=== PATIENT | female | born 1955 | race Two or more races ===

== ENCOUNTER 2020-03-14 07:30 | Inpatient (IN) | payer OTHER ==
[~2020-03-14] VITALS: Ht 160 cm; Wt 78.9 kg
[2020-03-14] MEDS ORDERED: TIROSINT75 MCG PO (09:59)
[2020-03-14] MEDS ORDERED: LOSART PO (10:00)
[2020-03-14] MEDS ORDERED: TOPROL XL100 MG PO (10:01)
[2020-03-14] MEDS ORDERED: ATORVASTATIN CA10 MG PO (10:01)
[2020-03-15] MEDS ORDERED: COZAAR25 MG PO (09:25)
[2020-03-15] MEDS ORDERED: HUMULIN 70100 UNIT/2 SUBCUTANEO (09:35)
[2020-03-15] MEDS ORDERED: CATAFLAN (09:38)
[2020-03-15] MEDS ORDERED: CATAFLAM PO (09:39)
[2020-03-20] MEDS ORDERED: HYOSCYAMINE0.125 M1 (07:59)
[2020-03-20] MEDS ORDERED: LOSARTAN POTAS100 MG PO (07:59)
[2020-03-24] MEDS ORDERED: HYOSCYAMINE0.125 M1 SL (10:24)
[2020-03-24] MEDS ORDERED: PERCOCET 5-3251 EACH PO (10:25)
== END 2020-03-24 11:25 | disposition home or self-care (01) | DRG 331 ==
LOC: O/R 03-20 06:30 → SURH 03-20 06:30
PROVIDERS: ADMIT Surgery
PROC: 0FT44ZZ Resection of Gallbladder, Percutaneous Endoscopic Approach (ICD-10-PCS; 2020-03-20)
PROC: 0DJD8ZZ Inspection of Lower Intestinal Tract, Via Natural or Artificial Opening Endoscopic (ICD-10-PCS; 2020-03-20)
PROC: 0DTN4ZZ Resection of Sigmoid Colon, Percutaneous Endoscopic Approach (ICD-10-PCS; principal; 2020-03-20 07:00)
PROC: 4A033R1 Measurement of Arterial Saturation, Peripheral, Percutaneous Approach (ICD-10-PCS; 2020-03-21)
PROC: 4A12X4Z Monitoring of Cardiac Electrical Activity, External Approach (ICD-10-PCS; 2020-03-21)
PROC: 07BC4ZX Excision of Pelvis Lymphatic, Percutaneous Endoscopic Approach, Diagnostic (ICD-10-PCS; 2020-03-21)
DX: K57.20 Diverticulitis of large intestine with perforation and abscess without bleeding (principal); K81.1 Chronic cholecystitis; I11.9 Hypertensive heart disease without heart failure; E03.8 Other specified hypothyroidism; E78.00 Pure hypercholesterolemia, unspecified; G47.33 Obstructive sleep apnea (adult) (pediatric); D50.8 Other iron deficiency anemias; R73.01 Impaired fasting glucose

== ENCOUNTER 2021-01-23 08:35 | Day surgery (SDC) | payer OTHER ==
[~2021-01-23 08:35] MED LIST: ATORVASTATIN CA10 MG PO; CATAFLAM PO; CATAFLAN; COZAAR25 MG PO; HUMULIN 70100 UNIT/2 SUBCUTANEO; HYOSCYAMINE0.125 M1; HYOSCYAMINE0.125 M1 SL; LOSART PO; LOSARTAN POTAS100 MG PO; PERCOCET 5-3251 EACH PO; TIROSINT75 MCG PO; TOPROL XL100 MG PO
== END 2021-01-23 12:35 | disposition home or self-care (01) ==
LOC: AMB-ENDOS 08:35
PROVIDERS: ATTEND Surgery
DX: K63.5 Polyp of colon (principal); Z20.822 Contact with and (suspected) exposure to COVID-19